=== PATIENT | male | born 1945 | race Caucasian/White ===

== ENCOUNTER → 2018-03-12 | Outpatient (CLI) | payer MEDICARE, OTHER | LOC: COL.RAD 12:20 | DX: M48.07 Spinal stenosis, lumbosacral region (principal); M51.17 Intervertebral disc disorders with radiculopathy, lumbosacral region; M43.16 Spondylolisthesis, lumbar region; M51.24 Other intervertebral disc displacement, thoracic region ==

== ENCOUNTER 2018-12-10 12:45 | Outpatient (RCR) | payer MEDICARE, OTHER | END 2018-12-10 14:46 | disposition home or self-care (01) | LOC: WSPT 12:45 | DX: G60.0 Hereditary motor and sensory neuropathy (principal); R26.89 Other abnormalities of gait and mobility; R53.83 Other fatigue; Z98.890 Other specified postprocedural states ==